=== PATIENT | male | born 1960 | race Caucasian/White ===

== ENCOUNTER 2016-09-08 03:12 | Emergency (ER) | payer BC ==
[~2016-09-08] VITALS: Ht 172.7 cm; Wt 96.6 kg
[~2016-09-08 03:12] MED LIST: ACTOS30 MG PO; ADVAIR HFA120 INHAL1 IH; APIDRA100 UNIT/1 SQ; APIDRA100 UNITS/ SC; AZITHROMYCIN500 M1 PO; FLEXERIL10 MG PO; HUMALOG100 UNIT/2 SC; INSULIN PUMP SCCONT; JANUMET 50/11 TABLET PO; Januvia PO; LANTUS 3 M100 UNITS/ SC; LANTUS 3 M100 UNITS1 SC; LANTUS100 UNIT/1 SC; LIPITOR20 MG PO; LO-DOSE ASPIRIN81 M2 PO; Levaquin PO; MONTELUKAST SOD10 MG PO; NAPROSYN500 MG PO; NORCO 7.5/321 TABLET PO; PREDNISONE10 MG PO; PROAIR RESPICL90 MCG IH; SPIRIVA RESPIMAT4 GM IH
[2016-09-08] MEDS ORDERED: PREDNISONE50 MG PO (04:49)
[2016-09-08] MEDS ORDERED: VENTOLIN HFA18 GM IH (04:49)
[2016-09-08 05:13] VITALS: BP 133/65
== END 2016-09-08 05:14 | disposition home or self-care (01) ==
LOC: EME 03:12
DX: J45.901 Unspecified asthma with (acute) exacerbation (principal); E11.9 Type 2 diabetes mellitus without complications; Z79.4 Long term (current) use of insulin; Z79.84 Long term (current) use of oral hypoglycemic drugs; I10 Essential (primary) hypertension
CPT/HCPCS: 94640; 94640 76; 94664; 99281; 99283; J7512